=== PATIENT | female | born 1980 | race Caucasian/White ===

== ENCOUNTER 2022-05-25 08:59 | Day surgery (SDC) | payer BC ==
[~2022-05-25] VITALS: Ht 180.3 cm; Wt 102.4 kg
[~2022-05-25 08:59] MED LIST: LIDOcaine 1% 30ml preserv. free vial SQ STA
[2022-05-25] MEDS ORDERED: albumin 25% 100mL bottle x 1 IV PRN (09:25)
[2022-05-25] MEDS ORDERED: FURO40TA4 PO (09:40)
[2022-05-25] MEDS ORDERED: [UNRECOGNIZED DRUG - CODE] SUBCUT (09:40)
[2022-05-25] MEDS ORDERED: GABA600T13 PO (09:40)
[2022-05-25] MEDS ORDERED: OXYC10TA92 PO (09:40)
[2022-05-25] MEDS ORDERED: EMPA10TA PO (09:40)
[2022-05-25] MEDS ORDERED: MORP30TA PO (09:40)
[2022-05-25] MEDS ORDERED: birth control PO (09:40)
[2022-05-25] MEDS ORDERED: ASPI-611 PO (09:40)
[2022-05-25] MEDS ORDERED: DULO60CA60 PO (09:40)
[2022-05-25 13:20] VITALS: BP 136/72
[2022-05-25 13:25] VITALS: BP 109/47
== END 2022-05-25 10:20 | disposition home or self-care (01) ==
LOC: SSTAY O 08:59
PROVIDERS: ATTEND Radiology Vascular & Interventional Radiology
DX: J90 Pleural effusion, not elsewhere classified (principal); Z53.8 Procedure and treatment not carried out for other reasons; C78.7 Secondary malignant neoplasm of liver and intrahepatic bile duct; F32.9 Major depressive disorder, single episode, unspecified; E11.9 Type 2 diabetes mellitus without complications; G62.9 Polyneuropathy, unspecified; I50.9 Heart failure, unspecified; Z90.49 Acquired absence of other specified parts of digestive tract; Z98.890 Other specified postprocedural states; Z95.2 Presence of prosthetic heart valve; Z88.8 Allergy status to other drugs, medicaments and biological substances; Z79.82 Long term (current) use of aspirin; Z79.899 Other long term (current) drug therapy
CPT/HCPCS: 76604